=== PATIENT | male | born 1950 | race American Indian/Alaskan Native ===

== ENCOUNTER 2019-12-14 08:54 | Emergency (ER) | payer MEDICARE ==
[2019-12-14 08:58] VITALS: BP 135/100
--- NOTE | 2019-12-14 12:19 | Emergency Department Report ---
Chief Complaint: Urogenital-Male Stated Complaint: STD Time Seen by Provider: 12/14/19 12:17 - HPI History of Present Illness: This 69-year-old male presents the ED stating that his partner recently got tested positive for STD so he is here for treatment. Patient denies penile lesions, testicular pain or dysuria of any kind. He also denies fever/chills/nausea vomiting - ROS Review of Systems: As noted in HPI - Exam Vital Signs: Vital Signs 12/14/19 08:55 Temperature 97.7 F Pulse Rate 80 Respiratory 17 Rate Blood Pressure 135/100 O2 Sat by Pulse 98 Oximetry MSE screening note: Focused history and physical exam performed. Due to findings the following was ordered: ED Medical Decision Making - Medical Decision Making 69-year-old male presents with STD exposure. Discussed with patient is not a medical emergency and he needs to call and get tested and treated at a clinic Discussed patient is to abstain from sex 7-10 days as treatment. Discussed with patient to Dr. Alvarado's office for testing. Referral was given to Dr. reagan. Discussed the follow-up with the health department for further STD testing. Patient's alert and oriented times 3. Vital signs are normal patient is in no acute discharge. Patient will be discharged home with instructions. ED Disposition for MSE Clinical Impression: STD exposure Disposition: DC-01 TO HOME OR SELFCARE Is pt being admited?: No Does the pt Need Aspirin: No Condition: Stable Instructions: Sexually Transmitted Diseases (ED), Safe Sex (ED) Additional Instructions: Make sure to follow up with the Dr. Palma's office as discussed. If you have any worsening symptoms or develop new symptoms please return to ED immediately. Referrals: XOCHITL SU MD [Primary Care Provider] - 3-5 Days JUANITO CULLEN MD [Staff Physician] - 3-5 Days Forms: Work/School Release Form(ED) Time of Disposition: 12:18
== END 2019-12-14 12:19 | disposition home or self-care (01) ==
LOC: ED 08:54
DX: Z20.2 Contact with and (suspected) exposure to infections with a predominantly sexual mode of transmission (principal)
CPT/HCPCS: 99282

== ENCOUNTER 2020-01-08 10:48 | Emergency (ER) | payer MEDICARE ==
[2020-01-08 11:25] VITALS: BP 126/90
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
== END 2020-01-08 12:39 | disposition home or self-care (01) ==
LOC: ED 10:48
DX: R52 Pain, unspecified (principal); J44.9 Chronic obstructive pulmonary disease, unspecified; F17.200 Nicotine dependence, unspecified, uncomplicated; Z79.899 Other long term (current) drug therapy; V49.59XA Passenger injured in collision with other motor vehicles in traffic accident, initial encounter; Y92.410 Unspecified street and highway as the place of occurrence of the external cause; Y93.89 Activity, other specified; Y99.8 Other external cause status
CPT/HCPCS: 99281